=== PATIENT | female | born 1945 | race Caucasian/White ===

== ENCOUNTER 2020-12-13 22:09 | Emergency (ER) | payer OTHER ==
--- NOTE | 2020-12-14 01:56 | EDPHYS ---
Physician Documentation [facility] Name: Nella Portillo Age: 75 yrs Sex: Female : 1945 Arrival Date: 12/13/2020 Time: 22:14 Bed 5 Private MD: Holland Reyes T ED Physician Belgica Jacobson HPI: 12/14 01:50 This 75 yrs old Female presents to ER via Wheelchair with complaints of Fall ma2 Injury. 01:52 Details of fall: The patient fell from an upright position. Onset: The symptoms/episode ma2 began/occurred suddenly, 2 hour(s) ago. Severity of symptoms: At their worst the symptoms were mild, in the emergency department the symptoms are unchanged. The patient has not experienced similar symptoms in the past. tripped and fell on right hip. Historical: - Allergies: 12/13 23:13 No Known Allergies; lp1 - Home Meds: 23:13 levothyroxine oral [Active]; lp1 - PMHx: 23:13 Hypothyroidism; lp1 - PSHx: 23:13 double mastectomy; kidney surgery; Appendectomy; eye surgery; lp1 - Immunization history:: Adult Immunizations up to date. - Social history:: Smoking status: Patient denies any tobacco usage or history of. Patient/guardian denies using alcohol, street drugs, The patient lives with family. - Family history:: not pertinent. ROS: 12/14 01:52 Constitutional: Negative for fever, chills, and weight loss. ma2 All other systems are negative. Exam: 01:52 Constitutional: This is a well developed, well nourished patient who is awake, alert, ma2 and in no acute distress. Head/Face: Normocephalic, atraumatic. Eyes: Pupils equal round and reactive to light, extra-ocular motions intact. Lids and lashes normal. Conjunctiva and sclera are non-icteric and not injected. Cornea within normal limits. Periorbital areas with no swelling, redness, or edema. ENT: Nares patent. No nasal discharge, no septal abnormalities noted. Tympanic membranes are normal and external auditory canals are clear. Oropharynx with no redness, swelling, or masses, exudates, or evidence of obstruction, uvula midline. Mucous membranes moist. Neck: Trachea midline, no thyromegaly or masses palpated, and no cervical lymphadenopathy. Supple, full range of motion without nuchal rigidity, or vertebral point tenderness. No Meningismus. Chest/axilla: Normal chest wall appearance and motion. Nontender with no deformity. No lesions are appreciated. Cardiovascular: Regular rate and rhythm with a normal S1 and S2. No gallops, murmurs, or rubs. Normal PMI, no JVD. No pulse deficits. Respiratory: Lungs have equal breath sounds bilaterally, clear to auscultation and percussion. No rales, rhonchi or wheezes noted. No increased work of breathing, no retractions or nasal flaring. Abdomen/GI: Soft, non-tender, with normal bowel sounds. No distension or tympany. No guarding or rebound. No evidence of tenderness throughout. Skin: Warm, dry with normal turgor. Normal color with no rashes, no lesions, and no evidence of cellulitis. MS/ Extremity: right upper thigh hematoma 5 x 5 cm, not pulsatie, no abscess, Pulses equal, no cyanosis. Neurovascular intact. Full, normal range of motion. Neuro: Awake and alert, GCS 15, oriented to person, place, time, and situation. Cranial nerves II-XII grossly intact. Motor strength 5/5 in all extremities. Sensory grossly intact. Cerebellar exam normal. Normal gait. Vital Signs: 12/13 23:14 BP 122 / 55; Pulse 71; Resp 18; Temp 98.4(TE); Pulse Ox 100% on R/A; Weight 65.32 kg lp1 (R); Height 5 ft. 8 in. (172.72 cm); Pain /; 12/14 02:13 BP 112 / 60; Pulse 68; Resp 18; Pulse Ox 98% ; ea 12/13 23:14 Body Mass Index 21.89 (65.32 kg, 172.72 cm) lp1 [place] Coma Score: 12/13 23:16 Eye Response: spontaneous(4). Verbal Response: oriented(5). Motor Response: obeys lp1 commands(6). Total: 15. Trauma Score (Adult): 23:16 Eye Response: spontaneous(1); Verbal Response: oriented(1); Motor Response: obeys lp1 commands(2); Systolic BP: > 89 mm Hg(4); Respiratory Rate: 10 to 29 per min(4); [place] Score: 15; Trauma Score: 12 MDM: 12/14 00:56 Patient medically screened. ma2 01:52 Differential diagnosis: contusion, fracture, sprain, strain. Data reviewed: vital ma2 signs, nurses notes. Counseling: I had a detailed discussion with the patient and/or guardian regarding: the historical points, exam findings, and any diagnostic results supporting the discharge/admit diagnosis, the presence of at least one elevated blood pressure reading (>120/80) during this emergency department visit, the need for outpatient follow up. Response to treatment: the patient's symptoms have markedly improved after treatment. 12/13 23:16 Order name: Hip Right 2 View XRAY lp1 12/14 01:34 Order name: Hand Right 3 View XRAY ma2 Administered Medications: 01:41 Drug: [place] (HYDROcodone-acetaminophen) 10 mg-325 mg 1 tabs Route: PO; ea 02:14 Follow up: Response: No adverse reaction ea Disposition: 12/14/20 01:55 Discharged to Home. Impression: Contusion of right thigh. - Condition is Stable. - Discharge Instructions: Hematoma, [id number]. - Prescriptions for Diclofenac Sodium 75 mg Oral Tablet Sustained Release - take 1 tablet by ORAL route 2 times per day; 30 tablet. - Medication Reconciliation Form, Thank You Letter, Antibiotic Education, Prescription Opioid Use form. - Follow up: Private Physician; When: Today; Reason: Continuance of care. Signatures: Dispatcher [employer] EDMargie Judge RN RN lp1 Asia Walsh RN RN ea Alzahri, Mohammad, MD MD ma2 Corrections: (The following items were deleted from the chart) 01:55 12/14/2020 01:55 Discharged to Home. Impression: Contusion of right thigh. ea Condition is Stable. Prescriptions for Diclofenac Sodium 75 mg Oral Tablet Sustained Release - take 1 tablet by ORAL route 2 times per day; 30 tablet. and Forms are Medication Reconciliation Form, Thank You Letter, Antibiotic Education, Prescription Opioid Use. Follow up: Private Physician; When: Today; Reason: Continuance of care. ma2
--- NOTE | 2020-12-14 01:56 | ER ---
Nurse's Notes [facility] Name: Nella Portillo Age: 75 yrs Sex: Female : 1945 Arrival Date: 12/13/2020 Time: 22:14 Bed 5 Private MD: Holland Reyes T Diagnosis: Contusion of right thigh Presentation: 12/13 23:07 Chief complaint: Patient states: Patient was at clothing store, trying on heels, when lp1 she lost balance and fell, hitting right hip on window sill, outreached right hand; reports pain; States large bruising to right hip. Care prior to arrival: None. Mechanism of Injury: Fall from standing position. Trauma event details: Injury occurred in the [facility], Injury occurred: in a public building. Injury occurred: December 13, 2020 Injury occurred at: 17:00. 23:07 Acuity: VEDA 3 lp1 23:07 Method Of Arrival: Wheelchair lp1 23:10 Coronavirus screen: Client denies travel out of the [place] in the last 14 days. At this lp1 time, the client does not indicate any symptoms associated with coronavirus-19. Ebola Screen: No symptoms or risks identified at this time. Risk Assessment: Do you want to hurt yourself or someone else? Patient reports no desire to harm self or others. 23:14 Initial Sepsis Screen: Does the patient meet any 2 criteria? No. Patient's initial lp1 sepsis screen is negative. Does the patient have a suspected source of infection? No. Patient's initial sepsis screen is negative. Onset of symptoms was December 13, 2020 at 17:00. Historical: - Allergies: 23:13 No Known Allergies; lp1 - Home Meds: 23:13 levothyroxine oral [Active]; lp1 - PMHx: 23:13 Hypothyroidism; lp1 - PSHx: 23:13 double mastectomy; kidney surgery; Appendectomy; eye surgery; lp1 - Immunization history:: Adult Immunizations up to date. - Social history:: Smoking status: Patient denies any tobacco usage or history of. Patient/guardian denies using alcohol, street drugs, The patient lives with family. - Family history:: not pertinent. Screenin:15 Abuse screen: Denies threats or abuse. Denies injuries from another. Nutritional lp1 screening: No deficits noted. Tuberculosis screening: No symptoms or risk factors identified. 12/14 01:46 Fall Risk Fall in past 12 months (25 points). ea Assessment: 01:43 General: Appears in no apparent distress. Behavior is calm, cooperative, appropriate ea for age. Pain: Denies pain. Neuro: Level of Consciousness is awake, alert, obeys commands, Oriented to person, place, time. Cardiovascular: Patient's skin is warm and dry. Respiratory: Airway is patent Respiratory effort is even, unlabored, Respiratory pattern is regular, symmetrical. Derm: Skin is pink, warm \T\ dry. 02:12 Reassessment: Patient and/or family updated on plan of care and expected duration. Pain ea level reassessed. Patient is alert, oriented x 3, equal unlabored respirations, skin warm/dry/pink. Discharge instruction given to patient verbalized the understanding of instruction. Pt left ED via wheelchair, pt tolerating well. Vital Signs: 12/13 23:14 BP 122 / 55; Pulse 71; Resp 18; Temp 98.4(TE); Pulse Ox 100% on R/A; Weight 65.32 kg lp1 (R); Height 5 ft. 8 in. (172.72 cm); Pain /; 12/14 02:13 BP 112 / 60; Pulse 68; Resp 18; Pulse Ox 98% ; ea 12/13 23:14 Body Mass Index 21.89 (65.32 kg, 172.72 cm) lp1 [place] Coma Score: 12/13 23:16 Eye Response: spontaneous(4). Verbal Response: oriented(5). Motor Response: obeys lp1 commands(6). Total: 15. Trauma Score (Adult): 23:16 Eye Response: spontaneous(1); Verbal Response: oriented(1); Motor Response: obeys lp1 commands(2); Systolic BP: > 89 mm Hg(4); Respiratory Rate: 10 to 29 per min(4); [place] Score: 15; Trauma Score: 12 ED Course: 22:14 Patient arrived in ED. es 22:14 Holland Reyes MD is Private Physician. es 23:10 Triage completed. lp1 23:13 Arm band placed on. lp1 23:59 Hip Right 2 View XRAY In Process Unspecified. EDMS 12/14 00:56 Belgica Jacobson MD is Attending Physician. ma2 01:25 Asia Walsh, RN is Primary Nurse. ea 01:46 Patient has correct armband on for positive identification. Bed in low position. Call ea light in reach. Side rails up X 1. 01:53 Hand Right 3 View XRAY In Process Unspecified. EDMS 02:12 No provider procedures requiring assistance completed. Patient did not have IV access ea during this emergency room visit. Administered Medications: 01:41 Drug: [place] (HYDROcodone-acetaminophen) 10 mg-325 mg 1 tabs Route: PO; ea 02:14 Follow up: Response: No adverse reaction ea Outcome: 01:55 Discharge ordered by . ma2 02:13 Condition: stable ea 02:13 Discharged to home ambulatory, with family. ea 02:13 Discharge instructions given to patient, Instructed on discharge instructions, follow up and referral plans. medication usage, Demonstrated understanding of instructions, follow-up care, medications, Prescriptions given X 1. 02:14 Patient left the ED. ea Signatures: Dispatcher [employer] Lola Pierec Laura RN RN lp1 Asia Walsh, RN RN Belgica Granados MD MD ma2
[2020-12-14] MEDS ORDERED: HYDROCODONE/APAP 10/325 TAB ONE (01:59)
[2020-12-14 02:49] VITALS: TEMP 98.4
[2020-12-14 02:51] VITALS: BP 112/60; O2SAT 98
--- NOTE | 2020-12-14 08:34 | RAD REPORT ---
EXAM DESCRIPTION: RAD - Hip Right 2 View - 12/13/2020 11:59 pm CLINICAL HISTORY: PAIN Fall, pain COMPARISON: No comparisons FINDINGS: Mild right hip osteoarthritis is present. There is mild to moderate adjacent soft tissue s welling. No acute fracture or dislocation.
--- NOTE | 2020-12-14 08:39 | RAD REPORT ---
EXAM DESCRIPTION: RAD - Hand Right 3 View - 12/14/2020 1:54 am CLINICAL HISTORY: PAIN COMPARISON: No comparisons FINDINGS: Mild osteopenia. No acute fracture or dislocation.
== END 2020-12-14 02:14 | disposition home or self-care (01) ==
LOC: ER 22:09
DX: S70.11XA Contusion of right thigh, initial encounter (principal); W01.0XXA Fall on same level from slipping, tripping and stumbling without subsequent striking against object, initial encounter; E03.9 Hypothyroidism, unspecified
CPT/HCPCS: 99283